=== PATIENT | male | born 1970 | race Hispanic/Latino ===

== ENCOUNTER 2018-02-18 09:09 | Emergency (ER) | payer MEDICAID, MEDICARE ==
[2018-02-18 09:15] VITALS: BMI 20.7
[2018-02-18 09:18] VITALS: RESP 18
[2018-02-18 10:26] LABS: BASO % 0.4 % (0.0-2.0); EOS # 0.1 K/uL (0.0-0.7); EOS % 1.3 % (0.0-4.0); HEMOGLOBIN 14.3 g/dL (12.0-18.0); LYMPH # 0.9 K/uL (1.0-4.3); LYMPH % 13.3 % (20.0-40.0); MEAN CORPUSCULAR HEMOGLOBIN 30.3 pg (27.0-31.0); MEAN CORPUSCULAR HGB CONC 35.7 g/dL (33.0-37.0); MEAN PLATELET VOLUME 7.3 fL (7.2-11.7); MONO # 0.7 K/uL (0.0-0.8); NRBC % 0.1 % (0.0-2.0); RBC 4.73 Mil/uL (4.40-5.90); RED CELL DISTRIBUTION WIDTH 12.8 % (11.5-14.5); WHITE BLOOD COUNT 6.7 K/uL (4.8-10.8)
[2018-02-18 10:47] LABS: URINE BACTERIA RARE (<OCC); URINE BILIRUBIN NEGATIVE (NEGATIVE); URINE BLOOD NEGATIVE (NEGATIVE); URINE CLARITY Hazy (Clear); URINE COLOR Amber (YELLOW); URINE GLUCOSE (UA) NORMAL (Normal); URINE LEUKOCYTE ESTERASE NEG Leu/uL (Negative); URINE PROTEIN 1+ mg/dL (NEGATIVE)
[2018-02-18 10:57] LABS: ALB/GLOB RATIO 1.3 (1.0-2.1); ALBUMIN 4.7 g/dL (3.5-5.0); ALT/SGPT 30 U/L (21-72); AST/SGOT 50 U/L (17-59); BLOOD UREA NITROGEN 30 mg/dL (9-20); CALCIUM 9.5 mg/dl (8.6-10.4); GFR AFRICAN-AMERICAN > 60; GFR NON-AFRICAN AMERICAN > 60
[2018-02-18 11:43] LABS: BARBITURATES, UR NEGATIVE (NEGATIVE); BENZODIAZEPINES, UR NEGATIVE (NEGATIVE); PHENCYCLIDINE, UR NEGATIVE (NEGATIVE)
[2018-02-18 12:09] LABS: OPIATES, UR POSITIVE (NEGATIVE)
--- NOTE | 2018-02-18 12:16 | C.PDOC ---
History Of Present Illness 47 year old male, with PMHx of Bipolar Depression and Schizophrenia, presents to ED with complaints of feeling depressed and having suicidal thoughts without a specific plan. Pt states he has been having thoughts of hurting himself since last night. He denies chest pain, shortness of breath, or any other physical complaints. Time Seen by Provider: 02/18/18 09:24 Chief Complaint (Nursing): Psychiatric Evaluation History Per: Patient History/Exam Limitations: no limitations Onset/Duration Of Symptoms: Gradual Current Symptoms Are (Timing): Still Present Suicide/Self Injury Attempted (Context): None Modifying Factor(s): None Associated Symptoms: Suicidal Thoughts. denies: Suicidal Plan Involuntary Hold By: None Additional History Per: Patient Past Medical History Reviewed: Historical Data, Nursing Documentation, Vital Signs Vital Signs: Last Vital Signs Temp 98.1 F 02/18/18 13:54 Pulse 75 02/18/18 13:54 Resp 18 02/18/18 13:54 BP 112/75 02/18/18 13:54 Pulse Ox 100 02/18/18 13:54 - Medical History PMH: Bipolar Disorder, COPD, CVA, Depression, Gastritis, HTN, Schizophrenia, TIA Comment Only: CAD (endocarditis) Surgical History: Denies: Tonsillectomy (PT DENIES) - [facility] CENTRAL VENOUS CATHETER PLACEMENT WITH GUIDANCE (11/12/13) DX ULTRASOUND-HEART (10/24/13) ESOPHAGOGASTRODUODENOSCOPY [EGD] W/CLOSED BIOPSY (07/01/13) EXCIS LESION OF MUSCLE (12/12/12) IMMOBILIZ/WOUND ATTN NEC (10/16/13) INDIVID PSYCHOTHERAP NEC (09/06/14) INJECT/INFUSE NEC (08/26/14) NEBULIZER THERAPY (12/27/13) OCCUPATIONAL THERAPY (11/14/13) OTHER ENDOSCOPY OF SM INTEST (11/23/12) OTHER SKIN & SUBQ I D (12/13/04) PHYSICAL THERAPY NEC (11/14/13) PSYCHIA INTERV/EVAL NEC (11/30/13) PSYCHIAT DRUG THERAP NEC (08/12/14) VENOUS PUNCTURE NEC (11/29/13) Family History: States: No Known Family Hx - Social History Hx Tobacco Use: Yes Hx Alcohol Use: No Hx Substance Use: Yes - Immunization History Hx Tetanus Toxoid Vaccination: Yes Hx Influenza Vaccination: No Hx Pneumococcal Vaccination: No Review Of Systems Constitutional: Negative for: Fever, Chills Cardiovascular: Negative for: Chest Pain, Palpitations Respiratory: Negative for: Cough, Shortness of Breath Neurological: Negative for: Headache, Dizziness Psych: Positive for: Depression, Suicidal ideation Physical Exam - Physical Exam Appears: Well, Non-toxic, No Acute Distress Skin: Normal Color, Warm, Dry Eye(s): bilateral: Normal Inspection Oral Mucosa: Moist Neck: Supple Cardiovascular: Rhythm Regular, No Murmur Respiratory: Normal Breath Sounds, No Rales, No Rhonchi, No Wheezing Gastrointestinal/Abdominal: Normal Exam, Bowel Sounds, Soft, No Tenderness Extremity: Normal ROM Neurological/Psych: Oriented x3 ED Course And Treatment - Laboratory Results Result Diagrams: 02/18/18 09:34 02/18/18 10:31 O2 Sat by Pulse Oximetry: 99 (RA) Pulse Ox Interpretation: Normal Progress Note: Blood work, UA, UDS ordered and reviewed. 1:05PM- Patient has been evaluated by Dr. Ames and cleared for discharge from psychiatric standpoint. He was instructed to follow up outpatient as instructed by crisis, and understands he should return to ED if symptoms worsen. Patient is AAOx3, ambulating normally in the ED. Disposition Counseled Patient/Family Regarding: Studies Performed, Diagnosis, Need For Followup - Disposition Referrals: [facility] [Outside] Disposition: HOME/ ROUTINE Disposition Time: 13:10 Condition: STABLE Instructions: Depression Forms: [facility] (Telugu) Print Language: PORTUGUESE - Clinical Impression Clinical Impression: Depression - Scribe Statement The provider has reviewed the documentation as recorded by the Rayrayibama Davila All medical record entries made by the Rayrayibama were at my direction and personally dictated by me. I have reviewed the chart and agree that the record accurately reflects my personal performance of the history, physical exam, medical decision making, and the department course for this patient. I have also personally directed, reviewed, and agree with the discharge instructions and disposition.
[2018-02-18 13:55] VITALS: BP 112/75; PULSE 75; TEMP 98.1
[2018-02-22 17:02] VITALS: O2SAT 99
== END 2018-02-18 13:55 | disposition home or self-care (01) ==
LOC: C.ER 09:09
DX: F32.9 Major depressive disorder, single episode, unspecified (principal)
CPT/HCPCS: 80053; 81001; 85025; 99284; G0480